=== PATIENT | female | born 1990 | race Caucasian/White ===

== ENCOUNTER → 2019-11-14 | Day surgery (SDC) | payer OTHER ==
[2019-11-08 11:08] LABS: BASOPHILS # (AUTO) 0.1 (0.0-0.1); EOSINOPHILS # (AUTO) 0.1 (0.0-0.4); EOSINOPHILS % 1.5 % (0.0-6.0); HEMATOCRIT 39.9 % (34.2-44.1); HEMOGLOBIN 13.1 g/dL (12.0-16.0); LYMPHOCYTES # (AUTO) 2.5 (1.0-3.2); LYMPHOCYTES % 37.4 % (18.0-39.1); MEAN CORPUSCULAR HEMOGLOBIN 31.3 pg (28-32); MEAN CORPUSCULAR HGB CONC 32.8 g/dL (31-35); MEAN CORPUSCULAR VOLUME 95.5 fL (81-99); MONOCYTES # (AUTO) 0.8 (0.2-0.8); MONOCYTES % 11.6 % (4.4-11.3); NEUTROPHILS # (AUTO) 3.3 (2.1-6.9); NEUTROPHILS % 48.4 % (38.7-80.0); PLATELET COUNT 254 x10e3/uL (140-360); RED BLOOD COUNT 4.18 x10e6/uL (3.6-5.1); RED CELL DISTRIBUTION WIDTH 13.2 % (11.7-14.4)
[~2019-11-14] MED LIST: ACETAMINOPHEN 1000 MG/100 ML 100 ML IV ONE; CEFAZOLIN SOD 1 GM/NS 50ML 100 ML IV ONE; DEXAMETHASONE SOD PHOS INJ 4 MG/ML VIAL ONE; FENTANYL CITRATE/PF 100MCG/2 ML INJ ONE; KETOROLAC TROMETHAMINE 30 MG/ML VIAL ONE; LIDOCAINE HCL 2% LOCAL INJ 5 ML SDV VIAL INJ ONE; MIDAZOLAM HCL 2 MG/2 ML VIAL ONE; NAPROSYN500 MG PO; ONDANSETRON HCL INJ 2MG/ML 2ML 2 MG/ML VIAL ONE; PROPOFOL IV EMULSION 10 MG/ML 20 ML VIAL ONE; SEVOFLURANE INHAL SOLN 250 ML PEN BTL ONE
[2019-11-14 07:35] VITALS: BP 107/70
--- NOTE | 2019-11-14 10:20 | Operative Report ---
DATE OF PROCEDURE: 11/14/2019 SURGEON: MAGDALENA ROWE MD PLACE OF SURGERY: [facility]. HISTORY: Ms. Stevens is a patient 29-year-old female, right-hand dominant with severe bilateral carpal tunnel syndrome with the right side more symptomatic than her left. The patient initially tried injections, bracing, anti-inflammatories, all of which were felt to resolve her pain symptoms fully and completely. The patient elected to forgo any further conservative treatment and proceed on with a right carpal tunnel release and median nerve decompression. The risks and benefits of surgery have been outlined to her consisting, but not limited to the following infection, blood loss, nerve, vessel or tendon injury, DVT, ongoing pain stiffness. Possible ongoing paresthesia numbness. The patient was seen and identified in the preop holding area. The right wrist was marked by myself, was agreed upon by the patient and then the patient was brought back to operative suite, placed supine on the operating table. Time-out was taken for Ms. Zuleyma Stevens for right carpal tunnel release with median nerve decompression. All were in agreement including nursing staff anesthesia and myself. The patient has been given a successful general intubation anesthetic and a nonsterile tourniquet was placed high in the right upper arm. Right upper extremity was then sterilely prepped and draped in the usual standard fashion. A limb was exsanguinated and the tourniquet was flipped to approximately 200 to 225 mmHg. An initial #15 Bard-Josesito blade was used to make an incision over the volar aspect of the right carpal tunnel. The palmar fascia was identified. Subcutaneous bleeding was controlled using needle Bovie tip. Blunt dissection was carried down to the transverse carpal ligament. Retractors were placed in. A 2nd #15 Bard-Josesito blade was then used to make a small incision and window into the carpal tunnel and the median nerve was readily identified. A soft tissue nerve retractor was placed between the nerve and the ligament itself and full decompression was carried out proximally and distally. The nerve was noted to be markedly hyperemic and flattened. We then carefully used the nerve retractor and retracted the nerve upon which time, there is significant amount of villonodular synovitis and inflammatory synovitis of the wrist. A synovectomy was then carried out of the wrist to remove the inflamed synovium carefully. The deep flexor tendons were identified. There were some marked adhesions and flexor tenosynovitis of the flexor tendons and we had to mobilize each flexor tendon, removing the adhesions, and a flexor tenolysis was carried out x8 tendons. Copious irrigation was then carried out of the entire wound. First, 2nd, and final counts were found to be correct. The incision was then closed using a 4-0 nylon suture in an interrupted fashion. Xeroform compressive dressing was applied. The patient was placed in a volar splint and the patient was then subsequently transferred to PACU in stable condition. PREOPERATIVE DIAGNOSIS: Right carpal tunnel syndrome. POSTOPERATIVE DIAGNOSES: 1. Right carpal tunnel syndrome with median nerve compression. 2. Villonodular synovitis of the right wrist. 3. Adhesions and flexor tenosynovitis of the flexor tendons of the right wrist x8 tendons. PROCEDURES: 1. Right carpal tunnel release with medial decompression. 2. Right wrist synovectomy for villonodular synovitis removal. 3. Flexor tenolysis of the flexor tendons of the right wrist x8 tendons. 4. Placement of a short-arm splint. ANESTHESIA: General. ESTIMATED BLOOD LOSS: Less than 2 to 3 mL. SPECIMENS: None. COMPLICATIONS: None. CONDITION: Stable to PACU. The patient was seen in PACU. Dressings were clean and dry. Capillary refills were brisk. Pain is well controlled. The patient was discharged home with Keflex as well as [place]. Discharge wound care instructions were discussed with her in person. The patient is to continue elevation. She will follow up in 2 weeks for wound check and suture removal. Discharge instructions were also discussed with nursing staff. MD OTTO GOTTI/RICHARL /[id number]
== END | disposition home or self-care (01) ==
LOC: OR 05:14
PROVIDERS: ATTEND Orthopaedic Surgery
DX: G56.01 Carpal tunnel syndrome, right upper limb (principal); M12.231 Villonodular synovitis (pigmented), right wrist; Z01.812 Encounter for preprocedural laboratory examination; Z11.59 Encounter for screening for other viral diseases
CPT/HCPCS: 25115; 36415; 81025; 85025; J0131; J0690; J1100; J1885; J2001; J2405; J2704; U0002; J2250; J3010